=== PATIENT | male | born 1965 | race Caucasian/White ===

== ENCOUNTER 2017-05-20 10:09 | Emergency (ER) | payer BC ==
[~2017-05-20] VITALS: Ht 180.3 cm; Wt 96.3 kg
[2017-05-20 10:28] VITALS: TEMP 37.4; Ht 180.3 cm; Wt 96.3 kg
[2017-05-20] MEDS ORDERED: MoRPHine SULFATE 4 MG/ML 1 ML CARP\\VIAL IV STA (10:42)
[2017-05-20] MEDS ORDERED: ONDANSETRON INJ 2 MG/ML 2 ML VIAL IV STA (10:42)
[2017-05-20] MEDS ORDERED: LISI10TA PO (11:09)
[2017-05-20] MEDS ORDERED: OMEP20CA9 PO (11:09)
[2017-05-20] MEDS ORDERED: ATOR-24 PO (11:09)
[2017-05-20] MEDS ORDERED: OPTIRAY 320 IV PRN (11:15)
[2017-05-20 11:24] LABS: BASO % 0.2 %; BASO ABS # 0.03 K/uL (0-0.2); COMPLETE YES; EOS % 0.1 %; HEMATOCRIT 44.3 % (42-52); IG% 0.2 %; LYMPH % 8.9 %; LYMPH ABS # 1.07 K/uL (1.2-3.4); MEAN CELL VOLUME 92.3 fL (80-100); MEAN CORPUSCULAR HEMOGLOBIN 32.1 pg (25-34); MEAN CORPUSCULAR HGB CONC 34.8 g/dl (32-36); MEAN PLATELET VOLUME 11.3 fL (7.4-10.4); MONO % 5.2 %; NEUT % 85.4 %; PLATELET COUNT 154 K/uL (130-400); WHITE BLOOD COUNT 12.02 K/uL (4.8-10.8)
[2017-05-20 11:30] LABS: BUN/CREATININE RATIO 13.8 (10-20); CALCIUM 9.1 mg/dl (8.5-10.1); CREATININE 1.06 mg/dl (0.60-1.40); POTASSIUM 3.8 mmol/L (3.5-5.1)
[2017-05-20 11:36] LABS: URINE APPEARANCE CLEAR (CLEAR); URINE BILIRUBIN NEG (NEG); URINE COLOR YELLOW; URINE NITRITE NEG (NEG); URINE PH 5.5 (4.5-7.5); URINE SPECIFIC GRAVITY 1.026 (1.000-1.030); UROBILINOGEN NEG (NEG)
[2017-05-20 12:22] LABS: MANUAL MICROSCOPIC REQUIRED? NO; REVIEW REQ? NO
--- NOTE | 2017-05-20 14:52 | DIAGNOSTIC IMAGING REPORT ---
ABDOMEN AND PELVIS CT WITH IV AND ORAL CONTRAST CT DOSE: 565.05 mGy.cm HISTORY: Left-sided abdominal pain. TECHNIQUE: Multiaxial CT images of the abdomen and pelvis were performed following the use of intravenous and oral contrast. A dose lowering technique was utilized adhering to the principles of ALARA. COMPARISON STUDY: None. FINDINGS: Moderate thickening and pericolonic fat stranding involving the entire descending colon. No evidence for bowel obstruction. Normal appendix. Small fat-containing left inguinal hernia. Normal bladder. No retroperitoneal lymphadenopathy. A 1 cm hypodense lesion within the left hepatic lobe. This favors a small cyst. The gallbladder, pancreas and glands, and kidneys are unremarkable. No hydronephrosis. There is enhancing 1.7 cm lesion within the spleen. This favors a benign hemangioma or hamartoma. Mesenteric vessels are patent. Bibasilar linear densities consistent with subsegmental atelectasis. No pneumoperitoneum. No pneumatosis. IMPRESSION: Moderate thickening of the descending colon consistent with a nonspecific colitis. This favors an infectious or inflammatory process. Ischemic colitis could also have a similar appearance but is considered less likely. The visualized mesenteric vessels appear patent. Electronically signed by: Wayne Starr M.D. 05/20/2017 2:50 PM Dictated Date/Time: 05/20/2017 2:41 PM
[2017-05-20] MEDS ORDERED: METR-163 PO (15:11)
[2017-05-20] MEDS ORDERED: CIPR1TAB10 PO (15:11)
[2017-05-20 15:31] VITALS: BP 146/91; PULSE 67; O2SAT 99
--- NOTE | 2017-05-21 06:32 | EMERGENCY ROOM VISIT NOTE ---
ED Visit Note First contact with patient: 10:27 Chief Complaint: Abdominal pain. History of Present Illness: Mr. Rosenberg is a 51 year-old white male complaining who ambulates into the ED complaining of left lower quadrant abdominal pain. Historically patient reports he has a history of diverticulitis and GERD. Patient reports a acute onset of left lower quadrant abdominal pain that started approximately 24 hours ago. Since that time the pain has been constant but has waxed and waned in intensity. The pain is currently described as cramping. The pain is nonradiating. He has not identified any aggravating or alleviating factors related to the pain. He has not taken any medications for his discomfort prior to arrival at the hospital. Last evening he reports he's had 2 explosive episodes of loose stools. Since waking this morning he reports his pain is less but now he is also nauseated but has not vomited. Patient denies fevers, chills, sweats, skin eruptions, skin color changes, upper respiratory tract symptoms, shortness of breath, chest pain, constipation , rectal bleeding, black/tarry stools, urinary symptoms, hematuria, back/flank pain. Review of Systems: As noted above in history of present illness. All body systems were reviewed and found to be negative as noted above. Past Medical History: As noted above, hypertension, dyslipidemia and status post tonsillectomy. Current Medications: Lisinopril, Lipitor and Prilosec. Allergies to Medications: Patient denies. Social History: Patient is currently employed; he feels safe in his home environment; he denies tobacco use and admits to social alcohol use. Physical Examination: Vital Signs: Date Time Temp Pulse Resp B/P (MAP) Pulse Ox O2 Delivery O2 Flow Rate FiO2 05/20/17 15:31 67 18 146/91 99 Room Air 05/20/17 14:19 78 19 93 Room Air 05/20/17 13:49 69 18 95 Room Air 05/20/17 13:44 67 19 93 Room Air 05/20/17 13:14 66 18 93 Room Air 05/20/17 13:01 126/79 05/20/17 12:44 60 19 92 Room Air 05/20/17 12:39 59 19 93 Room Air 05/20/17 12:31 141/84 05/20/17 12:09 59 19 92 Room Air 05/20/17 12:04 135/77 05/20/17 11:44 75 20 95 Room Air 05/20/17 11:39 73 20 94 Room Air 05/20/17 11:31 126/77 05/20/17 11:09 68 21 96 Room Air 05/20/17 11:07 72 20 136/88 94 Room Air 05/20/17 11:05 72 05/20/17 11:02 136/88 05/20/17 10:28 37.4 69 20 142/84 95 Room Air GENERAL: 51-year-old male in mild distress due to pain, nontoxic-appearing, afebrile and hemodynamically stable. NEUROLOGICAL: Awake, alert and oriented to person, place and time. Answering questions appropriately and following commands. Normal gait. Good hand eye coordination. SKIN: Warm, dry and pink. No soft tissue eruptions or trauma noted. HEENT: Atraumatic and normocephalic. PERRLA. Sclera white and conjunctiva pink. Oral cavity moist and pink. Pharynx is nonerythematous or edematous. Speech normal. No lymphadenopathy. Trachea midline. No jugular venous distention. BACK: No tenderness over the bony spine. No CVA tenderness. THORAX: Lungs sounds are clear to auscultation and equal bilaterally with symmetrical chest wall. No wheezing, rales or rhonchi. No crepitus, tenderness , subcutaneous air or deformities noted. HEART: Regular rate and rhythm. No gallops, rubs or murmurs are appreciated. ABDOMEN: Flat and soft with mild tenderness in the suprapubic area and the left lower quadrant. Decreased bowel sounds in all quadrants. No guarding, rigidity or organomegaly. EXTREMITIES: Moves all extremities well on command and with purpose. All distal neurovascular statuses are intact and equal bilaterally. ED Course: Patient is assessed as noted above. Laboratory Testing: Test 05/20/17 10:52 05/20/17 10:55 Range/Units Urine Color YELLOW Urine Appearance CLEAR CLEAR Urine pH 5.5 4.5-7.5 Urine Specific [place] 1.026 1.000-1.030 Urine Protein NEG NEG Urine Glucose (UA) NEG NEG Urine Ketones TRACE NEG Urine Occult Blood NEG NEG Urine Nitrite NEG NEG Urine Bilirubin NEG NEG Urine Urobilinogen NEG NEG Urine Leukocyte Esterase NEG NEG White Blood Count 12.02 4.8-10.8 K/uL Red Blood Count 4.80 4.7-6.1 M/uL Hemoglobin 15.4 14.0-18.0 g/dL Hematocrit 44.3 42-52 % Mean Corpuscular Volume 92.3 80-100 fL Mean Corpuscular Hemoglobin 32.1 25-34 pg Mean Corpuscular Hemoglobin Concent 34.8 32-36 g/dl Platelet Count 154 130-400 K/uL Mean Platelet Volume 11.3 7.4-10.4 fL Neutrophils (%) (Auto) 85.4 % Lymphocytes (%) (Auto) 8.9 % Monocytes (%) (Auto) 5.2 % Eosinophils (%) (Auto) 0.1 % Basophils (%) (Auto) 0.2 % Neutrophils # (Auto) 10.27 1.4-6.5 K/uL Lymphocytes # (Auto) 1.07 1.2-3.4 K/uL Monocytes # (Auto) 0.62 0.11-0.59 K/uL Eosinophils # (Auto) 0.01 0-0.5 K/uL Basophils # (Auto) 0.03 0-0.2 K/uL RDW Standard Deviation 43.6 36.4-46.3 fL RDW Coefficient of Variation 12.9 11.5-14.5 % Immature Granulocyte % (Auto) 0.2 % Immature Granulocyte # (Auto) 0.02 0.00-0.02 K/uL Sodium Level 138 136-145 mmol/L Potassium Level 3.8 3.5-5.1 mmol/L Chloride Level 103 98-107 mmol/L Carbon Dioxide Level 24 21-32 mmol/L Anion Gap 11.0 3-11 mmol/L Blood Urea Nitrogen 15 7-18 mg/dl Creatinine 1.06 0.60-1.40 mg/dl Est Creatinine Clear Calc Drug Dose 95.4 ml/min Estimated GFR () 92.4 Estimated GFR (Non- 79.7 BUN/Creatinine Ratio 13.8 10-20 Random Glucose 101 70-99 mg/dl Calcium Level 9.1 8.5-10.1 mg/dl Total Bilirubin 0.7 0.2-1 mg/dl Direct Bilirubin 0.2 0-0.2 mg/dl Aspartate Amino Transf (AST/SGOT) 26 15-37 U/L Alanine Aminotransferase (ALT/SGPT) 37 12-78 U/L Alkaline Phosphatase 77 45-117 U/L Total Protein 7.2 6.4-8.2 gm/dl Albumin 3.8 3.4-5.0 gm/dl Lipase 111 73-393 U/L Contrast Abdominal/Pelvic CT: Was reviewed by myself and read by the radiologist showing moderate thickening of the descending colon with per he colonic fat stranding consistent with nonspecific colitis. Patient was hydrated with normal saline and received 4 mg of morphine IV for pain and 4 mg of Zofran IV. Patient was reassessed multiple times during his stay in the emergency department. Patient's case was reviewed with Dr. Johnson; we agreed on diagnostic approach , treatment, disposition and plan. Patient was educated about today's findings and instructed on his treatment plan ; he verbalizes understanding and agreement with this plan. Clinical Impression: Acute colitis. Decision-Making: Initially my differential diagnosis I considered colitis, diverticulitis, diarrheal illness, bowel obstruction, perforated viscus and other causes. Disposition: Patient discharged home in stable condition accompanied by his sister; prior to departure he was reassessed and subjectively reported he was feeling slightly better. Plan: Patient was encouraged to alternate ibuprofen and acetaminophen as needed for pain. Patient was prescribed Flagyl and ciprofloxacin for antibiotic coverage and instructed on their use per Patient was encouraged to stay well-hydrated with increased clear fluids. Patient was encouraged to use [id number] Imodium for worsening diarrhea. Patient is encouraged to follow-up with family physician for recheck. Patient is encouraged return ED for worsening pain, fevers, worsening diarrhea, bloody stools or any new/concerning symptoms.
== END 2017-05-20 15:31 | disposition home or self-care (01) ==
LOC: C.EDB 10:11 → C.EDC 15:31
DX: K52.9 Noninfective gastroenteritis and colitis, unspecified (principal); I10 Essential (primary) hypertension; E78.5 Hyperlipidemia, unspecified; Z90.89 Acquired absence of other organs; Z79.899 Other long term (current) drug therapy